=== PATIENT | female | born 1970 | race Caucasian/White ===

== ENCOUNTER 2022-06-11 11:54 | Emergency (ER) | payer OTHER, SELFPAY ==
[2022-06-11] MEDS ORDERED: Ketorolac Tromethamine 30 MG/ML VIAL ONE (13:05)
== END 2022-06-11 15:00 | disposition home or self-care (01) ==
LOC: ERS 11:54
DX: M54.50 Low back pain, unspecified (principal); Z87.891 Personal history of nicotine dependence; W01.198A Fall on same level from slipping, tripping and stumbling with subsequent striking against other object, initial encounter
CPT/HCPCS: 72128; 72131; 96372; J1885